=== PATIENT | female | born 1965 | race Caucasian/White ===

== ENCOUNTER → 2019-02-13 | Outpatient (CLI) | payer BC, MEDICARE ==
--- NOTE | 2019-02-13 15:33 | CT ---
EXAMINATION TYPE: CT sinus wo con DATE OF EXAM: 02/13/2019 COMPARISON: None HISTORY: 54-year-old female Chronic sinusitis, for surgical planning, [employer] protocol TECHNIQUE: Noncontrast axial views of the paranasal sinuses were obtained . [employer] protocol was ut ilized with only axial series. CT DLP: 542 mGycm Automated exposure control for dose reduction was used. FINDINGS: PARANASAL SINUSES: Suspect prior medial maxillary antrectomies. There is persistent moderate to severe mucosal thickenin g left maxillary sinus with some layering fluid suspected and associated calcifications. Mild reactive piyush-osteogenesis of the left maxillary sinus childress. Otherwise, the frontal, ethmoid, sphenoid, and right maxillary sinus are relatively clear. THE NASAL CAVITY: The osteomeatal complexes are patent. Slight rightward nasal septal deviation. Normal variation with hyperostosis frontalis interna. The imaged brain and orbits are normal in appea wilmer. Mastoid air cells and middle ear cavities are well pneumatized. Reformatted images confirm above findings. IMPRESSION: 1. CT of the sinuses for surgical planning. 2. Suspect prior FESS but with moderate acute on chronic left maxillary sinusitis. There is reactive piyush-osteogenesis and some associated calcification that could represent superimposed aspergillus infe ction 3. Slight rightward nasal septal deviation.
== END | disposition home or self-care (01) ==
LOC: RADCTMAIN 13:15
PROVIDERS: ATTEND Otolaryngology
DX: J01.00 Acute maxillary sinusitis, unspecified (principal); J32.0 Chronic maxillary sinusitis; J34.2 Deviated nasal septum
CPT/HCPCS: 70486

== ENCOUNTER 2019-03-01 10:29 | Day surgery (SDC) | payer BC, MEDICARE ==
[2019-02-26 14:51] VITALS: BMI 43.5
[~2019-03-01 10:29] MED LIST: DEXAMETHASONE SOD PHOSPHATE 4 MG/ML 1 ML VIAL IV ONE; FAMOTIDINE 20 MG/2 ML VIAL IV ONE; ONDANSETRON 4 MG/2 ML VIAL IVP ONE
[2019-03-01] MEDS: OXYMETAZOLINE 0.05% NASL SPRAY 1 SPRAY BOTTLE NASAL ONE ×5 (11:05→11:36)
[2019-03-01] MEDS ORDERED: SCOPOLAMINE 1.5MG/72HR PATCH TRANSDERM ONE (11:08)
[2019-03-01] MEDS ORDERED: LACTATED RINGERS 1,000 ML IV ONE ×2 (11:29→15:23)
[2019-03-01] MEDS ORDERED: LIDOCAINE 1% 20 ML VIAL (10MG/ML) FOR IV START INTRADERMA ONE (11:29)
[2019-03-01 11:31] LABS: Glucose,Whole Blood 250 mg/dL (75-99)
[2019-03-01] MEDS ORDERED: ONDANSETRON 4 MG/2 ML VIAL IVP ONE (11:39)
[2019-03-01] MEDS ORDERED: INSULIN ASPART (NovoLOG) 100 UNIT/ML VIAL SQ ONE (11:53)
[2019-03-01] MEDS ORDERED: ROCURONIUM BROMIDE 10 MG/ML 10 ML VIAL IV ONE (13:16)
[2019-03-01] MEDS ORDERED: fentaNYL (PF) 50 MCG/ML 2 ML AMP ONE (13:16)
[2019-03-01] MEDS ORDERED: ONDANSETRON 4 MG/2 ML VIAL ONE (13:16)
[2019-03-01] MEDS ORDERED: LIDOCAINE 1% INJ 10MG/ML (20 ML MDV) ONE (13:16)
[2019-03-01] MEDS ORDERED: MIDAZOLAM 2 MG/2 ML VIAL ONE (13:16)
[2019-03-01] MEDS ORDERED: DEXAMETHASONE SOD PHOS (MDV) 100 MG/10 ML VIAL ONE (13:16)
[2019-03-01] MEDS ORDERED: GLYCOPYRROLATE 0.2 MG/ML 2 ML VIAL ONE (13:16)
[2019-03-01] MEDS ORDERED: NEOSTIGMINE 1 MG/ML 10 ML VIAL ONE (13:16)
[2019-03-01] MEDS ORDERED: PROPOFOL 10 MG/ML 20 ML VIAL IV ONE (13:16)
[2019-03-01] MEDS ORDERED: BUPIVACAIN-EPI 0.5%-1:200,000 30 ML VIAL SQ ONE (13:52)
[2019-03-01] MEDS ORDERED: LIDOCAINE 1%-EPI 1:100,000 20 ML VIAL SQ ONE (13:52)
[2019-03-01] MEDS ORDERED: EPINEPHrine 1 MG/ML (MDV) 30 ML VIAL IRRIGATION ONE (13:53)
[2019-03-01] MEDS ORDERED: FLUORESCEIN STRIPS 1 MG STRIP MISCELLANE ONE (13:53)
[2019-03-01] MEDS ORDERED: BACITRACIN 500 UNIT/GM OINT 28.4 GM TUBE TOPICAL ONE (14:13)
--- NOTE | 2019-03-01 14:29 | P.OP ---
Date of Procedure: 03/01/19 Preoperative Diagnosis: ALLERGIC fungal sinusitis with mycetoma Deviated nasal septum Hypertrophy of the bilateral inferior nasal turbinates Postoperative Diagnosis: Same Procedure(s) Performed: Image guided functional endoscopic sinus surgery with removal of a left maxillary mycetoma and bilateral infraturbinal maxillary antrostomies Septoplasty Bilateral sub mucosal resection of the inferior turbinates with outfracturing compression Anesthesia: CHENG Surgeon: David Win Estimated Blood Loss (ml): 5 Pathology: other (Sinonasal) Condition: stable Disposition: PACU Indications for Procedure: This patient presented to the office with chronic sinusitis he was found have a mycetoma in the left maxillary sinus with residual disease of the maxillary sinuses bilaterally. She has severe nasal obstruction initiated. The septum that she wished to have corrected along with reduction of the size of the inferior turbinates associated breathe better. We elected to do this image guided. We utilized a general C[employer] system for anatomic verification. All risks, benefits, and alternative therapies were discussed. Consent was obtained and all questions were answered. She was also found to have a hyperostosis frontallis internalis condition and this was discussed with the patient and she understood that there is no current treatment for this. Operative Findings: Patient was found to have chronic sinusitis changes in both maxillary sinuses with a large fungal ball on the left. Septum was deviated to the right and large obstructive inferior turbinates were noted. Description of Procedure: This patient was taken to the operative room and placed in the supine position. A general inhalation anesthetic was administered to the patient by the department of anesthesia with a functioning IV line in place. The patient was monitored throughout the entire case by the department of anesthesia. The eyes were taped shut for protection. The patient was placed in a slight reverse Trendelenburg position. The patient had previously utilize Afrin nasal spray preoperatively. The nose was evaluated and the septum lateral nasal wall and inferior turbinates were injected with lidocaine 1% with epinephrine 1 100,000 bilaterally. Approximately 10 minutes were allowed wait for full vasoconstrictive effects to take place. At this point a caudal incision was made over the caudal portion of the left septum down to the mucoperichondrium. A mucoperichondrial flap was elevated on the left side and dissection was carried with use of tunnels posteriorly. We then made a crossover incision through the cartilage to the contralateral side and for the mucoperichondrial flap development was performed to the extent of visualization on the contralateral side. After the cartilage was freed with use of several crosshatching incisions and removal of some redundant strips of septal cartilage, the septum was straightened and placed back in the midline. The septum was sutured fixated to the ovarian groove. Excellent straightening occurred and the septum was visibly straight. Incision was closed with a 40 rapid Vicryl. We utilized a running nonlocking fashion for closure of the incision. A quilting stitch was used to reapproximate the septal flaps with use of a 40 rapid Vicryl. A judge.me image guided system was utilized for anatomic verification. We used we would points and utilized anatomic verification points throughout the entire procedure. We then entered the nose with a 0 and 30 Winters angie endoscope. Previous to this we did inject the lateral nasal wall and middle turbinate and uncinate process with lidocaine 1% with epinephrine 1 100,000. Approximately 10 minutes were allowed wait for full vasoconstrictive effects to take place. With use of a microdebrider and a pediatric backbiter, we took down the remnant uncinate process bilaterally. We then opened the maxillary sinuses bilaterally much more widely.. We utilized a microdebrider for this and entered the maxillary sinuses and removed diseased tissue. We removed a large mycetoma on the left side. There was diseased tissue bilaterally which was removed. This was done bilaterally. The sugical site was reinspected after the xerogel was placed and no bleeding was seen. Intranasal splints were inserted and fixated at the end of the case. We utilized [employer] nasal splints. There will be removed and the patient returns to the office. Attention was then paid to the inferior turbinates. The bilateral inferior turbinates were hypertrophic and obstructive. We entered the anterior portion of the inferior turbinates with use of a microdebrider. We remove bone and submucosal elements with use of a microdebrider bilaterally. The inferior turbinates underwent a submucosal resection with removal of submucosal tissue and bone. We obtained a much better and normal in size for breathing. The inferior turbinates were then outfractured and compressed with a [employer] nasal elevator. Excellent airway was obtained and was symmetric bilaterally. No bleeding was encountered.
[2019-03-01 14:43] VITALS: TEMP 97.6
[2019-03-01] MEDS ORDERED: HYDROmorphone 1 MG/ML 1 ML SYRINGE IVP ONE (14:59)
[2019-03-01 15:20] VITALS: RESP 16
[2019-03-01 16:09] VITALS: BP 99/61; PULSE 89
== END 2019-03-01 16:45 | disposition home or self-care (01) ==
LOC: OR 10:29
PROVIDERS: ATTEND Otolaryngology
DX: J34.2 Deviated nasal septum (principal); J34.3 Hypertrophy of nasal turbinates; J32.0 Chronic maxillary sinusitis; B47.9 Mycetoma, unspecified; M85.2 Hyperostosis of skull; J30.89 Other allergic rhinitis; I10 Essential (primary) hypertension; E11.9 Type 2 diabetes mellitus without complications; M62.81 Muscle weakness (generalized); Z99.89 Dependence on other enabling machines and devices; E66.9 Obesity, unspecified; Z68.41 Body mass index [BMI] 40.0-44.9, adult; Z79.84 Long term (current) use of oral hypoglycemic drugs; Z79.891 Long term (current) use of opiate analgesic; Z79.899 Other long term (current) drug therapy; Z88.8 Allergy status to other drugs, medicaments and biological substances; Z91.048 Other nonmedicinal substance allergy status
CPT/HCPCS: 88305; 88300; 30520; 30140; 31267; 61782; C2625; J0171; J2250; J2710; J2405; J0690; J2001; J3010; J1170; J1100; J2704

== ENCOUNTER → 2020-08-22 | Outpatient (CLI) | payer BC, MEDICARE ==
[2020-08-23 03:27] LABS: % Iron Saturation 20.13 (12.00-45.00)
[2020-08-23 03:36] LABS: T4, Free (Free Thyroxine) 1.1 ng/dL (0.80-1.80)
[2020-08-23 03:55] LABS: Prolactin 6.6 ng/mL (2.8-29.2)
== END | disposition home or self-care (01) ==
LOC: LABWHC1 16:00
PROVIDERS: ATTEND Nurse Practitioner Family
DX: L65.9 Nonscarring hair loss, unspecified (principal)
CPT/HCPCS: 36415; 82306; 82627; 82652; 83540; 83550; 84146; 84403; 84439; 84443

== ENCOUNTER → 2021-02-20 | Outpatient (CLI) | payer BC, MEDICARE | END | disposition home or self-care (01) | LOC: LABWHC1 15:36 | PROVIDERS: ATTEND Internal Medicine Endocrinology, Diabetes & Metabolism | DX: E27.40 Unspecified adrenocortical insufficiency (principal) | CPT/HCPCS: 36415; 82024; 82533; 82627 ==

== ENCOUNTER 2021-06-22 16:02 | Emergency (ER) | payer BC, MEDICARE ==
[2021-06-22 16:38] VITALS: BP 154/90; PULSE 97; RESP 18; TEMP 98.6
--- NOTE | 2021-06-22 17:06 | XR ---
EXAMINATION TYPE: XR chest 2V DATE OF EXAM: 06/22/2021 COMPARISON: NONE HISTORY: Cough TECHNIQUE: Frontal and lateral views of the chest are obtained. FINDINGS: Poor inspiratory effort. Vascular crowding at the ulises. There is no focal air space opacit y, pleural effusion, or pneumothorax seen. The cardiac silhouette size is within normal limits. Th e osseous structures are intact. IMPRESSION: No acute cardiopulmonary process.
[2021-06-22] MEDS ORDERED: predniSONE 20 MG TAB PO STA (18:54)
[2021-06-22] MEDS ORDERED: DOXYCYCLINE 100 MG CAP PO STA (18:56)
--- NOTE | 2021-06-22 19:03 | ED ---
General Adult HPI - General Chief complaint: Upper Respiratory Infection Stated complaint: URI Time Seen by Provider: 06/22/21 18:13 Source: patient Mode of arrival: ambulatory Limitations: no limitations - History of Present Illness Initial comments: Patient is a 56 year old female with past medical history diabetes, hypertension who presents emergency Department with reported sinus congestion and cough. She reports her symptoms have been present for the past week. She went to urgent care and was given Augmentin and a Medrol Dosepak. She has been taking the medications as directed without improvement in her symptoms. She denies any fevers or chills. Cough is nonproductive. No chest pain or shortness of breath. She has been using her Proventil inhaler as directed. She does admit to a history of mild intermittent asthma. No nausea or vomiting. No abdominal pain. No other alleviating, precipitating or modifying factors - Related Data Home Medications Medication Instructions Recorded Confirmed Gabapentin [Neurontin] 800 mg PO DAILY 04/23/16 03/01/19 Meloxicam [Mobic] 7.5 mg PO DAILY PRN 04/23/16 03/01/19 Spironolactone [Aldactone] 25 mg PO DAILY 04/23/16 03/01/19 hydroCHLOROthiazide [Hydrodiuril] 25 mg PO DAILY 04/23/16 03/01/19 metFORMIN HCL ER [Glucophage XR] 500 mg PO PC-SUPPER 04/23/16 03/01/19 Gabapentin 1,200 mg PO HS 06/16/16 03/01/19 traMADol HCl [Ultram] 50 mg PO Q8HR PRN 03/01/19 03/01/19 Previous Rx's Medication Instructions Recorded Cyclobenzaprine [Flexeril] 10 mg PO TID PRN #90 tab 04/29/16 HYDROcodone/APAP 10-325MG [[place] 1 tab PO Q4HR PRN #120 tab 04/29/16 10-325] HYDROcodone/APAP 10-325MG [[place] 1 tab PO Q4HR PRN #90 tab 06/19/16 10-325] diazePAM [Valium] 5 mg PO TID PRN #90 tab 06/19/16 Amoxicillin/Potassium Clav 1 each PO Q12HR #20 tab 03/01/19 [Augmentin 875-125 Tablet] HYDROcodone/APAP 5-325MG [[place] 1 - 2 tab PO Q4-6H PRN 3 Days #36 03/01/19 5-325] tab Meloxicam [Mobic] 15 mg PO DAILY #10 tab 03/01/19 Benzonatate [Tessalon Perles] 100 mg PO TID PRN #30 cap 06/22/21 Doxycycline Hyclate 100 mg PO BID 1 Days #14 tab 06/22/21 Fluticasone Propionate [Flonase 1 spray EA NOSTRIL BID #1 bottle 06/22/21 Allergy Relief] Loratadine [Claritin] 10 mg PO DAILY #24 tablet 06/22/21 predniSONE [Deltasone] 20 mg PO BID #10 tab 06/22/21 Allergies Allergy/AdvReac Type Severity Reaction Status Date / Time adhesive Allergy skin Verified 06/22/21 16:38 irritation bacitracin Allergy Itching Verified 06/22/21 16:38 [From Neosporin ([id number])] neomycin Allergy Itching Verified 06/22/21 16:38 [From Neosporin ([id number])] nut - unspecified Allergy Anaphylaxis Verified 06/22/21 16:38 polymyxin B Allergy Itching Verified 06/22/21 16:38 [From Neosporin ([id number])] tree nut Allergy Anaphylaxis Verified 06/22/21 16:38 theophylline AdvReac Chest Pain Verified 06/22/21 16:38 Review of Systems ROS Statement: Those systems with pertinent positive or pertinent negative responses have been documented in the HPI. ROS Other: All systems not noted in ROS Statement are negative. Past Medical History Past Medical History: Diabetes Mellitus, Hypertension, Musculoskeletal Disorder, Neurologic Disorder, Osteoarthritis (OA) Additional Past Medical History / Comment(s): CHRONIC BACK PAIN, NEUROPATHY, History of Any Multi-Drug Resistant Organisms: None Reported, MRSA Date of last positivie culture/infection: 2015 MDRO Source:: nasal Past Surgical History: Adenoidectomy, Back Surgery, Bariatric Surgery, Hernia Repair, Tonsillectomy, Uterine Ablation Additional Past Surgical History / Comment(s): RIGHT FINGER RECONSTRUCTION, SINUS SURGERY,GASTRIC SLEEVE,fusion surgery 2016 Past Anesthesia/Blood Transfusion Reactions: Motion Sickness, Postoperative Nausea & Vomiting (PONV) Additional Past Anesthesia/Blood Transfusion Reaction / Comment(s): SEVERE PONV,NO HX OF BLOOD TRANSFUSION Past Psychological History: No Psychological Hx Reported Smoking Status: Never smoker Past Alcohol Use History: None Reported Past Drug Use History: None Reported - Past Family History Mother Family Medical History: Diabetes Mellitus, Hypertension Father Family Medical History: Coronary Artery Disease (CAD), Diabetes Mellitus, Hypertension Additional Family Medical History / Comment(s): CABG,JOSE SYNDROME General Exam Limitations: no limitations Course Vital Signs 06/22/21 16:33 Temperature 98.6 F Pulse Rate 97 Respiratory 18 Rate Blood Pressure 154/90 O2 Sat by Pulse 97 Oximetry Medical Decision Making - Medical Decision Making The patient is placed into room 13. There are history and physical was performed. I did discuss diagnosis, differential and treatment options. At this time the patient will be discharged home with a prescription for prednisone 20 mg twice daily. She will also be switched to doxycycline. Instructed to stop taking the Augmentin. Additionally patient will be placed on Flonase, Claritin and S1 pearls. Patient is to take them as directed. Follow up with her doctor in 2-4 days. Return to emergency room for any new or worsening symptoms. Patient was discharged home in stable condition - Lab Data Lab Results 06/22/21 Range/Units 16:41 Coronavirus (PCR) Not Detected (Not Detectd) Disposition Clinical Impression: Cough, Acute sinusitis Disposition: HOME SELF-CARE Condition: Stable Instructions (If sedation given, give patient instructions): Sinusitis (ED), Upper Respiratory Infection (ED) Additional Instructions: Please follow-up with your primary care doctor in 2-4 days to ensure that the changes we made to the medications are working. Use your inhaler every 4 hours. Stop taking the Augmentin. Return to the emergency room for any new or worsening symptoms Prescriptions: Loratadine [Claritin] 10 mg PO DAILY #24 tablet predniSONE [Deltasone] 20 mg PO BID #10 tab Doxycycline Hyclate 100 mg PO BID 1 Days #14 tab Fluticasone Propionate [Flonase Allergy Relief] 1 spray EA NOSTRIL BID #1 bottle Benzonatate [Tessalon Perles] 100 mg PO TID PRN #30 cap PRN Reason: Cough Is patient prescribed a controlled substance at d/c from ED?: No Referrals: Robin Walker DO [Primary Care Provider] - 1-2 days Time of Disposition: 19:03
== END 2021-06-22 19:11 | disposition home or self-care (01) ==
LOC: EC 16:02
DX: J01.90 Acute sinusitis, unspecified (principal); Z20.822 Contact with and (suspected) exposure to COVID-19; I10 Essential (primary) hypertension; E11.40 Type 2 diabetes mellitus with diabetic neuropathy, unspecified; M19.90 Unspecified osteoarthritis, unspecified site; Z79.84 Long term (current) use of oral hypoglycemic drugs
CPT/HCPCS: 87635; 71046; 99283; J7512

== ENCOUNTER → 2024-09-13 | Outpatient (CLI) | payer BC, MEDICARE ==
--- NOTE | 2024-09-13 17:04 | BD ---
EXAMINATION TYPE: Axial Bone Density DATE OF EXAM: 09/13/2024 CLINICAL HISTORY: 59 years old Female. ICD-10 CODE: N95.1 POST MENOPAUSAL SX , Z78.0 Height: 65 Weight: 227.5 FRAX RISK QUESTIONS: Alcohol (3 or more units per day): no Family History (Parent hip fracture): no Glucocorticoids (More than 3mos): no (Ex: prednisone, prednisolone, methylprednisolone, dexamethasone, and hydrocortisone). History of Fracture in Adulthood: elbow, finger Secondary Osteoporosis: 1. Type 1 Diabetes: no 2. Hyperthyroidism: no 3. Menopause before 45: no 4. Malnutrition: no 5. Chronic liver disease: no Rheumatoid Arthritis: no Current Tobacco Use: no RISK FACTORS HISTORY OF: Hip Fracture (Right/Left): no Spine Fracture: no History of Wrist Fracture: lt wrist When: age 15 Surgery to Spine/Hip(right/left)/Wrist (right/left): L-Spine surgery x3 with hardware When: 2013 MEDICATIONS: Thyroid Medications: no Osteoporosis Medications: no EXAM MEASUREMENTS: Bone mineral density about the R hip (g/cm2): 1.089 Bone mineral density about the L hip (g/cm2): 1.099 T Score values are as follows: -----R Neck: 0.3 -----L Neck: 0.5 -----R Total: 0.6 -----L Total: 0.7 Z Score values are as follows: -----R Neck: 0.8 -----L Neck: 1.0 -----R Total: 0.7 -----L Total: 0.8 Baseline Study FRAX%s: The graph provided illustrates a 9.1 % chance for a major osteoporotic fx and a 0.1% chance f or the hips probability for fx in 10 years time. IMPRESSION: Normal (Values between +1 and -1 indicate normal bone mass). Consider repeating this study in 5 year s or sooner if there is some new clinical indication. NOTE: T-SCORE=SD OF THE YOUNG ADULT MEAN. [facility], , 09/13/2024 5:02 PM
--- NOTE | 2024-10-01 14:16 | MM ---
Reason for Exam: Screening (asymptomatic). Last mammogram was performed 9 year(s) and 10 month(s) ago. Patient History: Menarche at age 12. Postmenopausal. Risk Values: Eliane 5 year model risk: 1.0%. NCI Lifetime model risk: 5.5%. Prior Study Comparison: 10/30/2014 Bilateral Screening Mammogram, [facility]. Tissue Density: The breasts are almost entirely fatty. Findings: Analyzed By CAD. Right breast: There is no suspicious group of microcalcifications or new suspicious mass. Left breast: There is no suspicious group of microcalcifications or new suspicious mass. Overall Assessment: Negative, BI-RAD 1 Management: Screening Mammogram of both breasts in [address] [facility] will attempt to contact patient to return for supplemental views and ultrasound if indicated. Patient should continue monthly self-breast exams. A clinical breast exam by your physician is recommended on an annual basis. This exam should not preclude additional follow-up of suspicious palpable abnormalities. Note on Eliane scores and lifetime risk: 1. A Eliane score greater than 3% is considered moderate risk. If this is the case, consider specialist referral to assess eligibility for a risk reducing agent. 2. If overall lifetime risk for the development of breast cancer is 20% or higher, the patient may qualify for future screening with alternating mammogram and breast MRI. [facility], , 10/01/2024 2:13 PM. Electronically signed and approved by: Seng Harper DO
== END | disposition home or self-care (01) ==
LOC: RADMAMWWP 14:15
PROVIDERS: ATTEND Family Medicine
DX: Z12.31 Encounter for screening mammogram for malignant neoplasm of breast (principal); R92.313 Mammographic fatty tissue density, bilateral breasts; Z78.0 Asymptomatic menopausal state
CPT/HCPCS: 77063; 77067; 77080